=== PATIENT | male | born 1990 | race African-American/Black ===

== ENCOUNTER 2021-12-27 00:28 | Emergency (ER) | payer SELFPAY | END 2021-12-27 01:53 | disposition home or self-care (01) | LOC: ERS 00:28 | DX: M25.572 Pain in left ankle and joints of left foot (principal); R23.0 Cyanosis; W20.8XXA Other cause of strike by thrown, projected or falling object, initial encounter ==

== ENCOUNTER 2022-03-11 03:21 | Emergency (ER) | payer SELFPAY | END 2022-03-11 03:48 | disposition left against medical advice (07) | LOC: ERS 03:21 | DX: Z53.21 Procedure and treatment not carried out due to patient leaving prior to being seen by health care provider (principal) ==